=== PATIENT | female | born 1995 | race Caucasian/White ===

== ENCOUNTER 2018-01-10 19:13 | Emergency (ER) | payer OTHER ==
--- NOTE | 2018-01-10 19:43 | EDM.PDOC ---
ED HPI GENERAL MEDICAL PROBLEM - General Chief Complaint: General Stated Complaint: fever, nausea, tired/fatigue Time Seen by Provider: 01/10/18 19:36 Source of Information: Reports: Patient History Limitations: Reports: No Limitations - History of Present Illness INITIAL COMMENTS - FREE TEXT/NARRATIVE: Patient presents to emergency room this evening with complaints of being cold/ having chills, shaky, nausea, fatigue, and also complains of some lower left quadrant abdominal pain. She also does complain of some lower back generalized pain. She states that she became ill Saturday, and has improved throughout the week but it still can of nagging at her. 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 She is able to drink fluids but has not been able to tolerate food very well. She states that every time she eats she gets a little nauseated. She does not take any daily medications except for control. She does state that she forgot to take it with her this last on a sports trip and she developed or her menstrual cycle on Saturday; that's now finished. She does also still have her gallbladder and appendix. Onset Date: 01/06/18 Duration: Improving Location: Reports: Generalized Quality: Reports: Ache Severity: Mild Associated Symptoms: Reports: Cough, Fever/Chills, Nausea/Vomiting, Weakness - Related Data Allergies Allergy/AdvReac Type Severity Reaction Status Date / Time codeine Allergy Vomiting Verified 01/10/18 20:05 lactose Allergy Vomiting Verified 01/10/18 20:05 Home Meds: Home Meds . [Unable to Verify Home Med List] 02/22/16 [History] Past Medical History - Past Health History Medical/Surgical History: Denies Medical/Surgical History - Past Surgical History HEENT Surgical History: Reports: Oral Surgery Social & Family History - Tobacco Use Smoking Status *Q: Never Smoker - Recreational Drug Use Recreational Drug Use: No ED ROS GENERAL - Review of Systems Review Of Systems: See Below Constitutional: Reports: Fever, Chills HEENT: Reports: No Symptoms Respiratory: Reports: Cough, Sputum Cardiovascular: Reports: No Symptoms Endocrine: Reports: Fatigue GI/Abdominal: Reports: Abdominal Pain (left lower quadrant), Nausea : Reports: No Symptoms Musculoskeletal: Reports: Back Pain Skin: Reports: No Symptoms Neurological: Reports: No Symptoms Psychiatric: Reports: No Symptoms Hematologic/Lymphatic: Reports: No Symptoms Immunologic: Reports: No Symptoms ED EXAM, GENERAL - Physical Exam Exam: See Below Exam Limited By: No Limitations General Appearance: Alert, WD/WN, No Apparent Distress Eye Exam: Bilateral Eye: EOMI, PERRL Ears: Normal TMs Nose: Normal Inspection, Normal Mucosa, No Blood Throat/Mouth: Normal Inspection, Normal Lips, Normal Teeth, Normal Gums, Normal Oropharynx, Normal Voice, No Airway Compromise Head: Atraumatic, Normocephalic Neck: Normal Inspection, Supple, Non-Tender, Full Range of Motion Respiratory/Chest: No Respiratory Distress, Lungs Clear, Normal Breath Sounds, No Accessory Muscle Use, Chest Non-Tender Cardiovascular: Normal Peripheral Pulses, Regular Rate, Rhythm, No Edema, No Gallop, No JVD, No Murmur, No Rub Peripheral Pulses: 2+: Posterior Tibial (L), Posterior Tibial (R), Dorsalis Pedis (L), Dorsalis Pedis (R) GI/Abdominal: Normal Bowel Sounds, Soft, Non-Tender, No Organomegaly, No Distention, No Abnormal Bruit, No Mass Back Exam: Normal Inspection, Full Range of Motion, NT Extremities: Normal Inspection, Normal Range of Motion, Non-Tender, Normal Capillary Refill, No Pedal Edema Neurological: Alert, Oriented, CN II-XII Intact, Normal Cognition, Normal Gait, Normal Reflexes, No Motor/Sensory Deficits Psychiatric: Normal Affect, Normal Mood Skin Exam: Warm, Dry, Intact, Normal Color, No Rash Lymphatic: No Adenopathy Course - Orders/Labs/Meds Orders: Active Orders 24 hr Category Date Time Status AMYLASE [CHEM] Stat Lab 01/10/18 19:37 Ordered CBC WITH AUTO DIFF [HEME] Stat Lab 01/10/18 19:37 Ordered COMPREHENSIVE METABOLIC PN,CMP [CHEM] Stat Lab 01/10/18 19:37 Ordered MARK MUNOZ VIRUS AB PANEL [REF] Stat Lab 01/10/18 19:37 Ordered - Re-Assessments/Exams Free Text/Narrative Re-Assessment/Exam: 01/10/18 21:11 UTI, started on 100 mg macrobid BID x 5 days Departure - Departure Time of Disposition: 20:55 Disposition: Home, Self-Care 01 Condition: Good Clinical Impression: UTI, Urinary tract infectious disease - Discharge Information Instructions: Urinary Tract Infection, Adult Forms: ED Department Discharge Additional Instructions: Take the Macrobid twice a day for 5 days. You will have to fill the prescription for the final 4 days. Follow up with primary provider in 7 days to be sure infection has cleared. We will be doing a urine culture to be sure the bacteria causing the infection will be eliminated by the macrobid. If not, we will call you with a different prescription. Make sure to drink plenty of water. Alternate ibuprofen and tylenol for fevers. Make sure to eat yogurt, and you may also want to take some probiotics for the next 4 weeks to prevent C. Difficile. Remember to wipe front to back to avoid contamination and additional urinary infections. Avoid bubble baths or heavily scented body soaps as these can alter the vaginal pH making you more susceptible to UTI's. Please call with any questions or concerns. - Problem List & Annotations (1) UTI, Urinary tract infectious disease SNOMED Code(s): 71660081 Code(s): N39.0 - URINARY TRACT INFECTION, SITE NOT SPECIFIED Status: Acute Priority: Low Current Visit: Yes - Problem List Review Problem List Initiated/Reviewed/Updated: Yes - My Orders Last 24 Hours: My Active Orders 01/10/18 19:37 AMYLASE [CHEM] Stat CBC WITH AUTO DIFF [HEME] Stat COMPREHENSIVE METABOLIC PN,CMP [CHEM] Stat MARK MUNOZ VIRUS AB PANEL [REF] Stat - Assessment/Plan Last 24 Hours: My Active Orders 01/10/18 19:37 AMYLASE [CHEM] Stat CBC WITH AUTO DIFF [HEME] Stat COMPREHENSIVE METABOLIC PN,CMP [CHEM] Stat MARK MUNOZ VIRUS AB PANEL [REF] Stat Assessment:: UTI Plan: Take the Macrobid twice a day for 5 days. You will have to fill the prescription for the final 4 days. Follow up with primary provider in 7 days to be sure infection has cleared. We will be doing a urine culture to be sure the bacteria causing the infection will be eliminated by the macrobid. If not, we will call you with a different prescription. Make sure to drink plenty of water. Alternate ibuprofen and tylenol for fevers. Make sure to eat yogurt, and you may also want to take some probiotics for the next 4 weeks to prevent C. Difficile. Remember to wipe front to back to avoid contamination and additional urinary infections. Avoid bubble baths or heavily scented body soaps as these can alter the vaginal pH making you more susceptible to UTI's. Please call with any questions or concerns.
[2018-01-10 20:04] VITALS: BP 118/69
[2018-01-10 20:38] LABS: CHLORIDE,CL 103 mmol/L (98-107); SODIUM,NA 138 mmol/L (136-145)
[2018-01-10] MEDS: Take Home: Nitrofurantoin Monohydrate/Macrocrystalline 100 MG, 2 Cap Pack PO ONE (21:02)
== END 2018-01-10 21:10 | disposition home or self-care (01) ==
LOC: VM.ED 19:13
DX: N39.0 Urinary tract infection, site not specified (principal); Z88.5 Allergy status to narcotic agent; Z91.011 Allergy to milk products
CPT/HCPCS: 36415; 80053; 81001; 82150; 85025; 86308; 87086; 99283; A9270; 87088; 87186

== ENCOUNTER 2022-07-27 03:47 | Emergency (ER) | payer OTHER ==
[2022-07-27] MEDS ORDERED: Ondansetron 4 MG/2 ML SDV ONE (04:08)
[2022-07-27 04:51] LABS: CHLORIDE,CL 104 mmol/L (98-107); SODIUM,NA 140 mmol/L (136-145)
[2022-07-27 04:52] LABS: ANION GAP 15.9 mmol/L (5-15); ESTIMATED GFR 80 mL/min (>=60)
[2022-07-27] MEDS ORDERED: Morphine 10 MG/ML SDV IVPUSH ONE ×2 (04:54→06:56)
[2022-07-27] MEDS ORDERED: Iopamidol 612 MG/ML 100 ML Bottle IVPUSH ONE (04:58)
[2022-07-27] MEDS ORDERED: Morphine 4 MG/ML Syringe IVPUSH ONE (05:02)
[2022-07-27] MEDS ORDERED: Metoclopramide 10 MG/2 ML SDV IVPUSH PRN (06:56)
[2022-07-27] MEDS ORDERED: Piperacillin/Tazobactam 3.375 GM in Sodium Chloride 0.9% 100 ML IV SCH (07:30)
[2022-07-27] MEDS ORDERED: HYDROmorphone 1 MG/ML Syringe IVPUSH ONE (08:40)
[2022-07-27 08:48] VITALS: BP 103/53; PULSE 54
== END 2022-07-27 10:00 | disposition short-term general hospital (02) ==
LOC: VM.ED 03:47
DX: K35.80 Unspecified acute appendicitis (principal); Z88.5 Allergy status to narcotic agent; Z91.011 Allergy to milk products; Z20.822 Contact with and (suspected) exposure to COVID-19
CPT/HCPCS: 74177; 80053; 81003; 81025; 85025; 87635; 96365; 96375; 96376; 99285; J1170; J2270; J2405; J2543; J2765; Q9967; 99284; U0002